=== PATIENT | male | born 1995 | race Caucasian/White ===

== ENCOUNTER 2019-06-25 22:29 | Emergency (ER) | payer BC ==
[2019-06-25] MEDS ORDERED: ACETAMINOPHEN 325 MG TABLET PO ONE (23:33)
--- NOTE | 2019-06-25 23:33 | ER Document Report ---
ED Medical Screen (RME) - General Chief Complaint: Animal Bite Stated Complaint: SPLIT LIP Time Seen by Provider: 06/25/19 23:32 Notes: 23-year-old male presents with dog bite to bottom lip. Dog is known to patient and is up-to-date on his rabies vaccinations. Patient is up-to-date on his tetanus. Laceration seen vertical through vermilion border approximately 2 cm. I have greeted and performed a rapid initial assessment of this patient. A comprehensive ED assessment and evaluation of the patient, analysis of test results and completion of the medical decision making process with be conducted by additional ED providers. Past Medical History - Social History Frequency of alcohol use: Occasional Physical Exam - Vital signs Vitals: Temp Pulse Resp BP Pulse Ox 98.2 F 74 18 135/84 H 98 06/25/19 23:10 06/25/19 23:10 06/25/19 23:10 06/25/19 23:10 06/25/19 23:10 Course - Vital Signs Vital signs: Temp Pulse Resp BP Pulse Ox 98.2 F 74 18 135/84 H 98 06/25/19 23:29 06/25/19 23:29 06/25/19 23:29 06/25/19 23:29 06/25/19 23:29
[2019-06-26] MEDS ORDERED: AMOXICILLIN TRIHYDRATE 500 MG CAPSULE PO ONE (01:11)
[2019-06-26] MEDS ORDERED: LIDOCAINE 1%/EPINEPHRINE INJ 20 ML VIAL INJ ONE (01:11)
[2019-06-26] MEDS ORDERED: AMOXICILLIN TR/POT CLAVULANATE 500-125 MG TAB PO ONE (01:11)
--- NOTE | 2019-06-26 01:13 | ER Document Report ---
ED Animal Bite - General Chief Complaint: Animal Bite Stated Complaint: SPLIT LIP Time Seen by Provider: 06/25/19 23:32 Notes: Patient is a 23-year-old male that comes to the emergency department for chief complaint of laceration from a dog bite to the bottom lip. This happened just prior to arrival. Patient was bitten by dog owned by his friend, this is a mix and they are unsure what kind of dog it is, dog is up-to-date on rabies and all vaccines. Patient is up-to-date on tetanus. Patient denies any other injuries or any other complaints. Past Medical History - General Information source: Patient - Social History Smoking Status: Never Smoker Frequency of alcohol use: Occasional Drug Abuse: None Lives with: Family Family History: Reviewed & Not Pertinent Patient has suicidal ideation: No Patient has homicidal ideation: No Surgical Hx: Negative - Immunizations Immunizations up to date: Yes Hx Diphtheria, Pertussis, Tetanus Vaccination: Yes Review of Systems - Review of Systems Constitutional: No symptoms reported EENT: See HPI Cardiovascular: No symptoms reported Respiratory: No symptoms reported Gastrointestinal: No symptoms reported Genitourinary: No symptoms reported Male Genitourinary: No symptoms reported Musculoskeletal: No symptoms reported Skin: See HPI Hematologic/Lymphatic: No symptoms reported Neurological/Psychological: No symptoms reported Physical Exam - Vital signs Vitals: Temp Pulse Resp BP Pulse Ox 98.2 F 74 18 135/84 H 98 06/25/19 23:10 06/25/19 23:10 06/25/19 23:10 06/25/19 23:10 06/25/19 23:10 - Notes Notes: GENERAL: Alert, interacts well. No acute distress. HEAD: Normocephalic, atraumatic. EYES: Pupils equal, round, and reactive to light. Extraocular movements intact. ENT: Oral mucosa moist, tongue midline. There is a vertical partial-thickness laceration in the mid lower lip that is almost 2 cm in length, this is not through and through. No other signs of injury. Oropharynx unremarkable. Airway patent. Nares patent, no nasal septal hematoma, TM's intact. NECK: Full range of motion. Supple. Trachea midline. LUNGS: Clear to auscultation bilaterally, no wheezes, rales, or rhonchi. No respiratory distress. HEART: Regular rate and rhythm. No murmur ABDOMEN: Soft, non-tender. Non-distended. Bowel sounds present in all 4 quadrants. GENITOURINARY: Deferred EXTREMITIES: Moves all 4 extremities spontaneously. No edema, normal radial and dorsalis pedis pulses bilaterally. No cyanosis. BACK: no cervical, thoracic, lumbar midline tenderness. No saddle anesthesia, normal distal neurovascular exam. NEUROLOGICAL: Alert and oriented x3. Normal speech. Cranial nerves II through XII grossly intact. PSYCH: Normal affect, normal mood. SKIN: Warm, dry, normal turgor. No rashes or lesions noted. Course - Re-evaluation Re-evalutation: Because of the laceration location for cosmetic reasons the area was cleaned thoroughly and closed despite this being a dog bite. Patient provided with and placed on Augmentin at home. Discussed wound care, antibiotics, follow-up, return precautions. Patient states appreciation and agreement. - Vital Signs Vital signs: Temp Pulse Resp BP Pulse Ox 98.3 F 76 17 136/80 H 98 06/26/19 03:08 06/26/19 03:08 06/26/19 03:08 06/26/19 03:08 06/26/19 03:08 Procedures - Laceration/Wound Repair Lower lip Wound length (cm): 2 Wound's Depth, Shape: Linear Laceration pre-procedure: Sterile PPE donned, Sterile drapes applied, Shur-Clens applied Anesthetic type: 1% Lidocaine w/epi Volume Anesthetic (mLs): 1 Wound explored: Clean, No foreign body removed Wound Debrided: Minimal Wound Repaired With: Sutures Suture Size/Type: 6:0, Ethilon Number of Sutures: 4 Layer Closure?: No Post-procedure NV exam normal: Yes Complications: No Discharge - Discharge Clinical Impression: Lip laceration Qualifiers: Encounter type: initial encounter Qualified Code(s): S01.511A - Laceration without foreign body of lip, initial encounter Dog bite Qualifiers: Encounter type: initial encounter Qualified Code(s): W54.0XXA - Bitten by dog, initial encounter Condition: Stable Disposition: HOME, SELF-CARE Additional Instructions: The sutures need to be removed in about 5 to 7 days. Keep clean, clean with soap and water, you can apply thin film topical antibiotic. Take the antibiotic as prescribed to completion. I recommend taking [id number] probiotic to avoid diarrhea with this. Return for any concerning symptoms including developing swelling, redness, discolored discharge, fever, or any other concerning symptoms. Prescriptions: Amox Tr/Potassium Clavulanate [Augmentin 875-125 Tablet] 1 tab PO BID 7 Days #14 tablet
[2019-06-26 03:10] VITALS: BP 136/80
== END 2019-06-26 03:08 | disposition home or self-care (01) ==
LOC: ER 22:29
PROC: 0CQ1XZZ Repair Lower Lip, External Approach (ICD-10-PCS; principal; 2019-06-25)
DX: S01.511A Laceration without foreign body of lip, initial encounter (principal); W54.0XXA Bitten by dog, initial encounter
CPT/HCPCS: 99283; 12011; J3490